=== PATIENT | female | born 1995 | race Caucasian/White ===

== ENCOUNTER 2016-11-21 11:51 | Emergency (ER) | payer BC, OTHER ==
[~2016-11-21] VITALS: Ht 167.6 cm; Wt 62.4 kg
[~2016-11-21 11:51] MED LIST: ATV/1 PO
[2016-11-21 11:52] VITALS: TEMP 37.1; Ht 167.6 cm; Wt 62.4 kg
[2016-11-21] MEDS ORDERED: ESCI10TA17 PO (12:09)
--- NOTE | 2016-11-21 12:32 | EMERGENCY ROOM VISIT NOTE ---
History Report prepared by Vidal: King Velazquez Under the Supervision of: Dr. Benjamin Ziegler M.D. First contact with patient: 12:20 Chief Complaint: WOUND INFECTION Stated Complaint: VAGINAL ABSCESS History of Present Illness The patient is a 20 year old female with a history of a Bartholin's gland abscess who presents to the Emergency Room with complaints of a worsening vaginal cyst on the right side that started a few days ago. She says that she has had a cyst at the same spot in the past, but it came back again, mostly due to the heat. The patient states that she has an OBGYN appointment in a month and a half in [place] for the cyst, but the pain and swelling has worsened so much that she had to come here to get it drained. She notes that she has had it removed 3 times at home in [place], and was seen here before for the same thing. She says that she has had it drained 5 times in the past. She adds that it is very painful to walk. The patient states that she has had cramping abdominal pain over the past 2 days. Her last menstrual cycle was 5 weeks ago, but her cycles are very irregular. She notes that she had a fever due to having a cold last week, but she denies any fevers or chills this week. She also denies any burning with urination, or abnormal vaginal discharge, other than the site of the abscess. The patient says that she has no history of abdominal surgeries. She notes that she does not have a bath tub at school. Source of History: patient Onset: A few days ago Position: other (vagina - right side) Quality: other (abscess/cyst) Timing: worsening Associated Symptoms: + abdominal pain (past 2 days ), No fevers, No chills, No urinary symptoms Note: Associated symptoms: Vaginal pain and swelling at cyst site. Denies abnormal vaginal discharge. Review of Systems See HPI for pertinent positives and negatives. A total of ten systems were reviewed and were otherwise negative. Past Medical & Surgical Medical Problems: (1) Anxiety (2) Psoriasis Family History Cancer Diabetes mellitus Heart disease Hypertension Social History Smoking Status: Never Smoker Drug Use: none Marital Status: single Occupation Status: [employer] student Current/Historical Medications Scheduled Cephalexin Monohydrate (Keflex), 500 MG PO QID Escitalopram (Lexapro), 10 MG PO DAILY Sulfa/Trimethoprim (Bactrim Ds 800MG/160MG), 2 TAB PO BID Allergies Coded Allergies: No Known Allergies (Unverified , 11/21/16) Physical Exam Vital Signs Date Time Temp Pulse Resp B/P (MAP) Pulse Ox O2 Delivery O2 Flow Rate FiO2 11/21/16 14:29 76 18 120/69 97 11/21/16 13:45 80 18 122/71 97 Room Air 11/21/16 11:52 37.1 84 18 127/79 99 Room Air Physical Exam GENERAL: Awake, alert, well-appearing, in no distress HENT: Normocephalic, atraumatic. Oropharynx unremarkable. EYES: Normal conjunctiva. Sclera non-icteric. NECK: Supple. No nuchal rigidity. FROM. No JVD. RESPIRATORY: Clear to auscultation. CARDIAC: Regular rate, normal rhythm. Extremities warm and well perfused. Pulses equal. ABDOMEN: Soft, non-distended. No tenderness to palpation. No rebound or guarding. No masses. RECTAL: Deferred. MUSCULOSKELETAL: Chest examination reveals no tenderness. The back is symmetrical on inspection without obvious abnormality. There is no CVA tenderness to palpation. No joint edema. LOWER EXTREMITIES: Calves are equal size bilaterally and non-tender. No edema. No discoloration. VAGINAL EXAM: 3 cm area of fluctuance on the right inner labia extending proximally into vaginal canal. No significant fluctuance or induration externally. NEURO: Normal sensorium. No sensory or motor deficits noted. SKIN: No rash or jaundice noted. Medical Decision & Procedures Laboratory Results Test 11/21/16 12:50 11/21/16 14:50 Urine Color YELLOW Urine Appearance CLEAR (CLEAR) Urine pH 5.5 (4.5-7.5) Urine Specific [place] 1.017 (1.000-1.030) Urine Protein NEG (NEG) Urine Glucose (UA) NEG (NEG) Urine Ketones TRACE (NEG) Urine Occult Blood NEG (NEG) Urine Nitrite NEG (NEG) Urine Bilirubin NEG (NEG) Urine Urobilinogen NEG (NEG) Urine Leukocyte Esterase MODERATE (NEG) Urine WBC (Auto) 10-30 /hpf (0-5) Urine RBC (Auto) 0-4 /hpf (0-4) Urine Hyaline Casts (Auto) 0 /lpf (0-5) Urine Epithelial Cells (Auto) >30 /lpf (0-5) Urine Bacteria (Auto) NEG (NEG) Urine Yeast (Auto) (NONE PRSENT) Urine Test NEG (NEG) Date/Time Source Procedure Growth Status 11/21/16 12:50 Urine , Clean Catch Urine Culture - Final THREE TYPES OF ORGANSIMS PRESENT, ALL... Complete Laboratory results reviewed by me Medications Administered Medications (Trade) Dose Ordered Sig/Tanya Route Start Time Stop Time Status Last Admin Dose Admin Lidocaine HCl (Buffered Lidocaine 1% Inj) 20 ml ONE ONCE INFIL 11/21/16 12:45 11/21/16 12:46 DC 11/21/16 13:00 20 ML Cephalexin Monohydrate (Keflex Cap) 500 mg NOW ONCE PO 11/21/16 14:00 11/21/16 14:03 DC 11/21/16 14:25 500 MG Trimethoprim/ Sulfamethoxazole (Septra Ds 800/ 160MG Tab) 2 tab NOW STAT PO 11/21/16 13:57 11/21/16 14:03 DC 11/21/16 14:25 2 TAB Procedure Drainage Indication: Abscess. Location: Right inner labia. Verbal consent was obtained after the risks and benefits were explained, including but not limited to bleeding, scarring, infection, pain, and bone/joint /nerve damage. At this time, the risks of the procedure are less than the risks of NOT performing the procedure. A time out was taken and the correct patient and site identified. The skin was prepped with diluted betadine and a sterile field set. The wound was anesthetized with 1 cc of 1% lidocaine without epinephrine. The abscess cavity was entered with a 18 gauge needle and purulent material expressed. Copious irrigation was performed using normal saline. Detailed wound care instructions and signs and symptoms of worsening infection reviewed with the patient. No complications and the patient tolerated the procedure well. ED Course 1222: The patient was evaluated in room B3B. A complete history and physical exam was performed. 1245: Ordered Buffered Lidocaine 1% Inj 20 ml INFIL. 1307: I discussed the patient with Dr. Eddy - [facility] 1350: I reevaluated the patient and she is resting comfortably. Discussed results and discharge instructions: She verbalized understanding and agreement. The patient is ready for discharge. 1357: Ordered Septra Ds 800/160MG Tab 2 tab PO. 1400: Ordered Keflex Cap 500 mg PO. Medical Decision I reviewed the patient's past medical history, medications, and the nursing notes as described above. Differential diagnosis includes but is not limited to: Bartholin's gland cyst, abscess, cellulitis, STD. The patient is a 20 yo woman with pmhx of recurrent right sided bartholin gland cysts/absecess presents to the ED with recurrence of same per HPI. On arrival the patient is in NAD. On exam the patient has 3cm area of fluctuance, ttp on inner right labial wall extending proximally. Given the recurrence and 4 other I &Ds for this, I deferred I&D given risk of creating tracks that could promote recurrence but aspiration possible. I discussed this with Dr. Montgomery, PATIENT FINANCIAL COORDINATOR, who agreed that patient probably needs to be scheduled outpatient for surgical evaluation and likely marsupealization. Agrees with aspiration to provide interim relief and they will see patient later this week. Aspiration performed per procedure note. Findings and plan for abx and warp placer follow-up d/w patient. Patient agreeable and d/c'd per discharge instructions. Medication Reconcilliation Current Medication List: was personally reviewed by me Blood Pressure Screening Patient's blood pressure: Normal blood pressure Consults Time Called: 1300 Consulting Physician: Dr. Surjit GÓMEZ OBCELIA Returned Call: 1307 I discussed the patient with Dr. Surjit CODY. Impression Primary Impression: Bartholin's gland abscess Scribe Attestation The scribe's documentation has been prepared under my direction and personally reviewed by me in its entirety. I confirm that the note above accurately reflects all work, treatment, procedures, and medical decision making performed by me. Departure Information Dispostion Home / Self-Care Prescriptions Sulfa/Trimethoprim (Bactrim Ds 800MG/160MG) Tab 2 TAB PO BID for 7 Days, #28 TAB Prov: Benjamin Ziegler M.D. 11/21/16 Cephalexin Monohydrate (Keflex) 500 Mg Cap 500 MG PO QID, #28 CAP Prov: Benjamin Ziegler M.D. 11/21/16 Referrals No Doctor, Assigned (PCP) Aisha Eddy M.D. Patient Instructions Bartholin Cyst Abscess, [facility] Additional Instructions Please follow up with gynecology in the next 1-3 days for re-evaluation and likely to arrange surgical procedure for definitive treatment. You have a Bartholin gland cyst/abscess that was temporarily drained. You were given antibiotics. Otherwise, your exam did not show signs of an emergent condition at this time. Cultures were sent today and you will only be called if they return positive. Take antibiotics as directed. Use sitz bath for 15 minute intervals at least 4 times daily. Return to the emergency department for worsening symptoms as described in the accompanying instructions.
[2016-11-21] MEDS ORDERED: XYLOCAINE 1%/SOD BICARB 20 ML VIAL INFIL ONE (12:45)
[2016-11-21 13:32] LABS: URINE APPEARANCE CLEAR (CLEAR); URINE BILIRUBIN NEG (NEG); URINE COLOR YELLOW; URINE EPITHELIAL CELL AUTO >30 /lpf (0-5); URINE NITRITE NEG (NEG); URINE PH 5.5 (4.5-7.5); URINE SPECIFIC GRAVITY 1.017 (1.000-1.030); UROBILINOGEN NEG (NEG); ZZUR CULT IF INDIC CLEAN CATCH YES
[2016-11-21 13:36] LABS: MANUAL MICROSCOPIC REQUIRED? NO; REVIEW REQ? YES
[2016-11-21] MEDS ORDERED: SULFAMETHOXAZOLE/TRIMETHOPRIM DS 800/160MG TAB PO STA (13:57)
[2016-11-21] MEDS ORDERED: CEPHALEXIN MONOHYDRATE 250 MG CAP PO ONE (14:00)
[2016-11-21] MEDS ORDERED: SULF800T23 PO (14:08)
[2016-11-21] MEDS ORDERED: CEPH500C PO (14:08)
[2016-11-21 14:29] VITALS: BP 120/69; PULSE 76; O2SAT 97
[2016-11-24 00:55] LABS: CHLAMYDIA TRACH RNA*** NOT DETECTED (NOT DETECTED); GC (NEIS GONORRHOEAE)RNA** NOT DETECTED (NOT DETECTED)
--- NOTE | 2016-11-24 16:48 | Pharmacy Progress Note ---
ED Pharmacist Culture FollowUp Date of Service: Nov 24, 2016. Patient seen for vaginal cyst which was drained in the ER. She was discharged on bactrim and keflex. Her genital culture also grew gardnerella. Discussed with Dr. Ziegler and called in a prescription for metronidazole 500mg BID X 7 days to [facility] and instructed patient to inform her OB-DIGITAL MEDIA REPRESENTATIVE of these results and antibiotic treatment when she has a chance to follow up again as she stated she was seen yesterday.
== END 2016-11-21 14:29 | disposition home or self-care (01) ==
LOC: C.EDB 11:53
DX: N75.1 Abscess of Bartholin's gland (principal); F41.9 Anxiety disorder, unspecified; L40.9 Psoriasis, unspecified; Z80.9 Family history of malignant neoplasm, unspecified; Z83.3 Family history of diabetes mellitus; Z82.49 Family history of ischemic heart disease and other diseases of the circulatory system; Z79.899 Other long term (current) drug therapy